=== PATIENT | male | born 1990 | race African-American/Black ===

== ENCOUNTER 2016-12-18 09:28 | Emergency (ER) | payer MEDICAID ==
[~2016-12-18] VITALS: Ht 182.9 cm; Wt 72.6 kg
[2016-12-18 10:04] VITALS: BP 117/69
[2016-12-18] MEDS ORDERED: Azithromycin 250mg tab ORAL ONE (10:30)
[2016-12-18] MEDS ORDERED: DOXYCYCLINE MO100 MG ORAL (10:40)
[2016-12-18 10:56] VITALS: BP 117/69
--- NOTE | 2016-12-18 10:58 | Emergency Room Report ---
History of Present Illness General Chief Complaint: Male Urogenital Problems Source: Patient Present Illness HPI Patient present with complaints of increased urination Patient reports feeling a dribbling sensation Denies any other pelvic pain Denies any bladder pain Denies any testicular pain Denies any blood in the urine Patient's concern about possible STD Denies any fevers or chills denies any lymph node swelling Allergies: Coded Allergies: No Known Allergies (Unverified , 12/18/16) Patient History Past Medical History: see triage record Pertinent Family History: none Reviewed Nursing Documentation: PMH: Agreed, PSxH: Agreed Nursing Documentation-PMH Past Medical History: No Stated History Review of Systems All Other Systems: negative except mentioned in HPI Physical Exam Vital Signs Date Time Temp Pulse Resp B/P Pulse Ox O2 Delivery O2 Flow Rate FiO2 12/18/16 09:45 98.1 59 14 117/69 96 Room Air Sp02 EP Interpretation: reviewed, normal General Appearance: well appearing, no apparent distress Head: normocephalic, atraumatic Eyes: bilateral eye EOMI, bilateral eye PERRL ENT: normal pharynx Neck: supple Respiratory: lungs clear Musculoskeletal: normal inspection Neurologic: alert, oriented x3 Skin: normal color Lymphatic: no adenopathy Medical Decision Making Diagnostic Impression: Primary Impression: urethritis ER Course Patient has clinical symptoms of likely urethritis At this time I did discuss with him that patient has been treated clinically Patient's best course pressure is followup with STD clinic for continued close outpatient followup, patient's partner was here and was treated as well and they both require close outpatient followup Last Vital Signs Date Time Temp Pulse Resp B/P Pulse Ox O2 Delivery O2 Flow Rate FiO2 12/18/16 10:04 98.1 68 14 117/69 96 Room Air Status: unchanged Disposition: HOME, SELF-CARE Condition: Stable Scripts Doxycycline Monohydrate* (DOXYCYCLINE MONOHYDRATE*) 100 Mg Capsule 100 MG ORAL Q12H, #10 CAP 0 Refills Prov: JANUARY BAIN D.O. 12/18/16 [facility] ([facility]) Patient Instructions: Urethritis, Adult Additional Instructions: Patient is provided with the discharge instructions notified to follow up with primary doctor in the next 2-3 days otherwise return to the er with any worsening symptoms. Please note that this report is being documented using [employer] technology. This can lead to erroneous entry secondary to incorrect interpretation by the dictating instrument. JANUARY BAIN D.O. Dec 18, 2016 10:58
== END 2016-12-18 10:58 | disposition home or self-care (01) ==
LOC: EMR 10:02
DX: N34.2 Other urethritis (principal)
CPT/HCPCS: 96372; 99283; J0696; Q0144

== ENCOUNTER 2017-07-26 14:44 | Emergency (ER) | payer MEDICAID ==
[~2017-07-26] VITALS: Ht 182.9 cm; Wt 68.0 kg
[~2017-07-26 14:44] MED LIST: DOXYCYCLINE MO100 MG ORAL
--- NOTE | 2017-07-26 15:17 | Emergency Room Report ---
History of Present Illness General Chief Complaint: Skin Rash/Abscess Source: Patient Present Illness HPI 27 yo male presents to clinic complaining of pruritic bumps "all over" his body for the past week. Patient denies bleeding, pain, or pus from bumps. Patient denies sick contacts in the house with similar symptoms. Patient shares bed with girlfriend; girlfriend present in ER and denies similar symptoms. Patient reports using a new detergent for cleaning clothes. Patient denies fever, nausea, vomiting, chest pain, SOB. Allergies: Coded Allergies: No Known Allergies (Unverified , 12/18/16) Patient History Past Medical History: see triage record Immunizations: UTD Reviewed Nursing Documentation: PMH: Agreed, PSxH: Agreed Nursing Documentation-PMH Hx Asthma: Yes Review of Systems All Other Systems: negative except mentioned in HPI Physical Exam Vital Signs Date Time Temp Pulse Resp B/P (MAP) Pulse Ox O2 Delivery O2 Flow Rate FiO2 07/26/17 14:52 97.3 60 15 109/69 98 Room Air Sp02 EP Interpretation: reviewed, normal General Appearance: no apparent distress, alert, GCS 15, non-toxic Head: normocephalic, atraumatic Eyes: bilateral eye normal inspection, bilateral eye PERRL Respiratory: chest non-tender, lungs clear, normal breath sounds, speaking full sentences Cardiovascular #1: regular rate, rhythm, no edema, no murmur, no rub Musculoskeletal: gait/station normal, normal range of motion Neurologic: alert, oriented x3, responsive, speech normal Skin: warm/dry, well hydrated, rash - Diffuse and widespread macules and papules over dorsum of hands/knuckles/webspaces of fingers bilaterally, abdomen , and back. no erythema, edema, excoriations, blood, pus present Lymphatic: no adenopathy Medical Decision Making PA Attestation Dr. Rainey is my supervising Physician whom patient management has been discussed with. Diagnostic Impression: Primary Impression: Rash and other nonspecific skin eruption ER Course Pt. presents to the ED c/o rash. Ddx considered but are not limited to rash, atopic dermatitis, scabies, shingles , hives, urticaria, angioedema., allergic reaction. Vital signs: are WNL, pt. is afebrile H&PE are most consistent with rash. ORDERS: None required at this time, the diagnosis is clinical ED INTERVENTIONS: None required at this time. DISCHARGE: At this time pt. is stable for d/c to home. Will provide printed patient care instructions, and any necessary prescriptions. -Rx given for Benadryl for pruritis. -Rx given for Permethrin cream. Care plan and follow up instructions have been discussed with the patient prior to discharge. Patient provided with list of healthcare clinics to establish primary care physician. Patient instructed to follow-up with primary care provider in 3 - 5 days. Patient questions asked and answered. ER precautions given. Patient instructed to return to ER immediately for any new or worsening of symptoms including but not limited to increasing SOB, persistent fever. Last Vital Signs Date Time Temp Pulse Resp B/P (MAP) Pulse Ox O2 Delivery O2 Flow Rate FiO2 07/26/17 14:52 97.3 60 15 109/69 98 Room Air Disposition: HOME, SELF-CARE Condition: Stable Scripts Permethrin* (ELIMITE*) 60 Gm Cream..g. 1 APPLIC TOPIC ONCE, #60 GM 0 Refills Apply cream from head to toe; leave on for 8-14 hours before washing off with water; may reapply in 1 week if live mites appear. Prov: Hammad Carbone 07/26/17 Diphenhydramine HCl (Benadryl) 25 Mg Capsule 25 MG PO DAILY for 7 Days, #7 CAP Prov: Hammad Carbone 07/26/17 Patient Instructions: Rash Additional Instructions: Followup with primary care provider in 3 -5 days. Take medications as directed. Patient questions asked and answered. ER precautions given, patient instructed to return to ER immediately for any new or worsening of symptoms. Hammad Carbone Jul 26, 2017 15:17
[2017-07-26] MEDS ORDERED: IBUPROFEN400 MG ORAL (15:19)
[2017-07-26] MEDS ORDERED: CLARITIN5 MG ORAL (15:19)
[2017-07-26] MEDS ORDERED: BENADRYL25 M3 PO (15:36)
[2017-07-26] MEDS ORDERED: PERMETHRIN60 GM TOPIC (15:37)
[2017-07-26 16:06] VITALS: BP 109/69
[2017-07-26 16:07] VITALS: BP 116/66
== END 2017-07-26 16:30 | disposition home or self-care (01) ==
LOC: EMR 16:16
DX: R21 Rash and other nonspecific skin eruption (principal); J45.909 Unspecified asthma, uncomplicated
CPT/HCPCS: 99283

== ENCOUNTER 2018-09-30 09:47 | Emergency (ER) | payer MEDICAID ==
[~2018-09-30] VITALS: Ht 185.4 cm; Wt 69.9 kg
[~2018-09-30 09:47] MED LIST changes: +BENADRYL25 M3 PO; +CLARITIN5 MG ORAL; +IBUPROFEN400 MG ORAL; +PERMETHRIN60 GM TOPIC
[2018-09-30] MEDS ORDERED: NKM (09:53)
[2018-09-30 09:55] VITALS: BP 128/74
[2018-09-30] MEDS ORDERED: Lidocaine 1% MPF 10mg/ml 5ml INJ ONE (10:45)
[2018-09-30] MEDS ORDERED: Azithromycin 250mg tab ORAL ONE (10:45)
[2018-09-30 11:00] VITALS: BP 124/72
--- NOTE | 2018-09-30 11:49 | Emergency Room Report ---
History of Present Illness General Chief Complaint: Male Urogenital Problems Source: Patient Present Illness HPI Patient presents with reports that he feels a discharge sensation from the penile area A 'dribbling'sensation Denies any fevers or chills and eyes any chest pain or shortness of breath Denies any abdominal pain patient does report that he essentially active Not using protection at all times Denies any swollen lymph nodes denies any rash Allergies: Coded Allergies: No Known Allergies (Unverified , 12/18/16) Patient History Past Medical History: see triage record Pertinent Family History: none Reviewed Nursing Documentation: PMH: Agreed; PSxH: Agreed Nursing Documentation-PM Past Medical History: No Stated History Hx Asthma: Yes Review of Systems All Other Systems: negative except mentioned in HPI Physical Exam Vital Signs Date Time Temp Pulse Resp B/P (MAP) Pulse Ox O2 Delivery O2 Flow Rate FiO2 09/30/18 09:51 98.1 65 14 129/75 99 Room Air Sp02 EP Interpretation: reviewed, normal General Appearance: well appearing, no apparent distress Head: normocephalic, atraumatic Eyes: bilateral eye PERRL, bilateral eye EOMI ENT: hearing grossly normal, normal pharynx Neck: supple Respiratory: lungs clear, normal breath sounds, no retraction Cardiovascular #1: regular rate, rhythm, no edema Gastrointestinal: non tender, soft Genitourinary: no CVA tenderness Musculoskeletal: normal inspection Neurologic: alert, oriented x3 Skin: normal color Lymphatic: no adenopathy Medical Decision Making Diagnostic Impression: Primary Impression: urethritis ER Course Patient has conical symptoms of urethritis He is treated with appropriate medication here Was also discussed the need for close outpatient STD clinic follow-up The intervention today does not address HIV syphilis or other diseases Patient is aware and will follow closely Last Vital Signs Date Time Temp Pulse Resp B/P (MAP) Pulse Ox O2 Delivery O2 Flow Rate FiO2 09/30/18 11:00 98.3 64 15 124/72 99 Room Air Status: improved Disposition: HOME, SELF-CARE Condition: Improved [facility]errals: [facility] ([facility]) Patient Instructions: Urethritis, Adult Additional Instructions: Patient is provided with the discharge instructions notified to follow up with primary doctor in the next 2-3 days otherwise return to the er with any worsening symptoms. Please note that this report is being documented using [employer] technology. This can lead to erroneous entry secondary to incorrect interpretation by the dictating instrument. Familia Tanner DO Sep 30, 2018 11:49
== END 2018-09-30 11:00 | disposition home or self-care (01) ==
LOC: EMR 10:31
DX: N34.2 Other urethritis (principal); J45.909 Unspecified asthma, uncomplicated
CPT/HCPCS: 96372; 99283; J0696; Q0144